=== PATIENT | male | born 1985 | race Caucasian/White ===

== ENCOUNTER 2022-10-09 10:15 | Outpatient (CLI) | payer OTHER ==
--- NOTE | 2022-10-10 09:39 | MRI Report ---
PROCEDURE: CERVICAL SPINE WO INDICATIONS: CERVICAL RADICULOPATHY TECHNIQUE: Noncontrast sagittal T1 spin echo and T2 fast spin echo, sagittal STIR, foraminal oblique sagittal T2 fast spin echo, and axial gradient echo or T2 fast spin echo through the cervical spine. COMPARISON: None. FINDINGS: Image quality: Excellent. Alignment and Curvature: There is normal bony alignment. Bone Marrow: Marrow demonstrates normal overall signal. Spinal Cord: Visualized spinal cord has normal size and signal. No cerebellar tonsillar herniation. Paraspinous Soft Tissues: No paravertebral masses. Prevertebral soft tissues are normal in thicknes s. C2-C3: No canal stenosis or foraminal stenosis. C3-C4: Very minimal central posterior disc protrusion, without touching the cord. No canal stenosis . AP diameter of the canal is 11.4 mm. Foramina are patent. C4-C5: Mild central posterior disc protrusion indenting on the cord. Congenitally short pedicles. AP diameter of the canal is 9.3 mm. Right uncovertebral joint hypertrophy and facet hypertrophy. Left f acet hypertrophy. Moderate to severe right foraminal narrowing with a degree of right foraminal C5 ne rve root impingement. Moderate left foraminal narrowing. C5-C6: Diffuse posterior disc plus osteophyte abutting and indenting on the cord. AP diameter of the canal is 9.5 mm. Somewhat congenitally short pedicles. Bilateral uncovertebral joint hypertrophy and facet hypertrophy. Moderate to severe right foraminal narrowing and severe left foraminal narrowing with bilateral foraminal C6 nerve root impingement. C6-C7: Small central posterior osteophyte. No canal stenosis. AP diameter of the canal is 10.7 mm. L eft facet hypertrophy. Right uncovertebral joint hypertrophy. Moderate to severe right foraminal narr owing and severe left foraminal narrowing with bilateral foraminal C7 nerve root impingement. C7-T1: No canal stenosis. Right facet hypertrophy and focal moderate to severe right foraminal narro wing with right foraminal C8 nerve root impingement. IMPRESSION: 1. Mild canal stenosis at C4-C5 and C5-C6. 2. Significant multilevel foraminal narrowing with multilevel foraminal nerve root impingement. There is bilateral foraminal nerve root impingement at C4-C5, C5-C6, and C6-C7. There is right foraminal n erve root impingement at C7-T1. Reviewed by: Niall Busby MD on 10/10/2022 9:37 AM PDT Approved by: Niall Busby MD on 10/10/2022 9:37 AM PDT Station ID: [id number]
== END 2022-10-09 10:16 | disposition home or self-care (01) ==
LOC: DI 10:15
PROVIDERS: ATTEND Family Medicine
DX: M50.11 Cervical disc disorder with radiculopathy, high cervical region (principal); M47.22 Other spondylosis with radiculopathy, cervical region; M48.02 Spinal stenosis, cervical region

== ENCOUNTER 2022-12-23 09:12 | Outpatient (CLI) | payer OTHER ==
--- NOTE | 2022-12-23 11:19 | CT Report ---
PROCEDURE: LOWER EXTREMITY WO - RT INDICATIONS: RIGHT TALAR NECK BONE SPUR WITH PAIN TECHNIQUE: Noncontrast 3-mm axial sections acquired from the distal tibial shaft to the talar dome, with coronal and sagittal reformats. For radiation dose reduction, the following was used: automated exposure c ontrol, adjustment of mA and/or kV according to patient size. COMPARISON: None. FINDINGS: Image quality: Excellent. Bones: There is an anterior osteophyte from the talus measuring 1.3 x 1.2 cm. There is no encroachme nt or compromise of the joint space. It is located approximately 5 mm below the skin surface. No visualized fractures or dislocations. No suspicious osseous lesions. Soft tissues: Normal appearance of the muscles are identified. No focal fluid collections. Impression: Prominent anterior talar osteophyte as above. Reviewed by: Yas Biswas MD on 12/23/2022 11:17 AM PDT Approved by: Yas Biswas MD on 12/23/2022 11:17 AM PDT Station ID: [id number]
== END 2022-12-23 09:13 | disposition home or self-care (01) ==
LOC: DI 09:12
PROVIDERS: ATTEND Podiatrist
DX: M25.771 Osteophyte, right ankle (principal)

== ENCOUNTER 2023-05-04 15:11 | Outpatient (CLI) | payer OTHER ==
--- NOTE | 2023-05-04 16:13 | Sleep Patient Instructions ---
Sleep Center Visit Summary - Patient Visit Information Reason for Visit: Initial consult for evaluation of sleep disordered breathing and other sleep issues. - Patient Instructions Instructions Attached: Sleep Study Home Monitor, Sleep Study Additional Instructions: You will be completing a sleep study, either an in-lab polysomnography (PSG) or home sleep study (HST). You will follow-up in the sleep care office after the sleep study is completed to hear the results and talk about therapy, if needed. You will be called by our office staff to schedule this appointment, but you may contact us with any questions. - Clinic Information Contact: [facility] [address] [place] [id number] [email or web address] T: [phone]
--- NOTE | 2023-05-04 16:22 | SLEEP CARE CONSULTATION ---
Information from patient questionnaire entered by Lisa Reyes. I have reviewed and concur with the information entered by Lisa Reyes. This document represents the service I personally performed and the decisions made by me, Delia Thompson ARNP. History of Present Illness Service Date and Time: 05/04/2023 1511 Reason for Visit: New patient, Previously diagnosed sleep apnea Chief Complaint: reports: Unrefreshed sleep, Snoring, Excessive daytime sleepiness, Observed pauses in breathing, Fatigue, Other (UPDATE SUPPLIES) Date of Onset: 14YRS Usual bedtime: 10-11PM Time it takes to fall asleep: 10MIN Snores at night: Yes Observed to quit breathing while asleep: Yes Sleeps alone due to snoring: No Number of times waking at night: 4-5 Reasons for waking at night: reports: Gasping for air (heard by his ), Pain, Other (UNKNOWN) Toss, Turn, or Twitch while sleeping: Yes Recalls having dreams: No Usually gets out of bed at: 430AM Feels refreshed in the morning: No Morning headache: Yes (3-4 times a week) Sleepy or fatigued during the day: Yes Ever fallen asleep while driving: Yes (drowsy driving) Takes day naps: Yes (1-2 weekly for 10-15 minutes) Dreams during day naps: No Prior sleep studies: Yes Additional HPI information: I had the pleasure of seeing GLENN SINGH today regarding the possibility of him having a sleep disorder. His current complaints are excessive daytime sleepiness, fatigue, observed pauses in breathing, snoring and unrefreshed sleep. Patient states he has been previously diagnosed with obstructive sleep apnea back in 2013 or . He was also placed on a CPAP, AirSense 10, that he still has at home. He says he tried every style of mask and they adjusted pressures multiple times but he was unable to find a mask that was comfortable where he could leave it on for more than a couple hours at night. He also tried multiple oral devices, 3-4 types, but because of his extreme bruxism he damaged or broke them. He now has TMJ issues for which he uses a nightly mouthguard. He says he has not used any treatment for his sleep apnea for years now. He knows he snores loudly and has pauses in breathing. He states he normally falls asleep quickly but will wake up several times during the night. When he gets up in the morning he does not feel like he slept much at all. His gets nervous at night when she hears him gasping in his sleep and pausing in breathing. His father has sleep apnea and is on a PAP machine. - Parasomnia Symptoms Ever been unable to move upon waking from sleep: No Walks in sleep: No Talks in sleep: Yes Ever acted out dreams in sleep: Yes (has sat up and talked to ) Ever felt weak in the knees when startled or emotional: No Bothered by creepy, crawly, restless sensations in legs: No Problems with memory or concentration: Yes (both) Subjective Initial [place] Sleepiness Scale score: 16 (04/06/23) Past Medical History Past Medical History: reports: Anxiety, Depression, Mood disorder, Other (BACK NECK AND KNEE PAIN, tmj) Social History The patient's occupation is a [employer]. Patient is Single and lives in . Have you smoked in the past 12 months: No Alcohol use: Yes Alcohol amount and frequency: 1-2 BEERS PER WEEK Caffeine use: Yes Caffeine amount and frequency: 1 PER DAY Family History Family history of sleep disordered breathing: Yes Family Hx Sleep Apnea: Mother: Snoring, Sleep apnea - Untreated, Father: Snoring, Sleep apnea - Treated, Sibling: Snoring, Sleep apnea - Untreated Allergies and Home Medications Known drug allergies: Yes (erythromycin; beta-blockers) Drug allergies reviewed: Yes Home medication list reviewed: Yes (as listed) Allergy and home medication list: Allergies erythromycin base Allergy (Intermediate, Verified 05/04/23 16:20) Nausea BETA BLOCKERS Allergy (Intermediate, Uncoded 05/04/23 16:20) Itching Home Medications Fluoxetine HCl [Prozac] See Rx Instructions .ROUTE .COMPLEX 05/04/23 [History] Fluticasone [Flonase] See Rx Instructions .ROUTE .COMPLEX 05/04/23 [History] Loratadine [Claritin] See Rx Instructions .ROUTE .COMPLEX 05/04/23 [History] Olopatadine HCl See Rx Instructions .ROUTE .COMPLEX 05/04/23 [History] Phentermine/Topiramate [Qsymia 7.5 mg-46 mg Capsule] See Rx Instructions .ROUTE .COMPLEX 05/04/23 [History] Review of Systems Weight gain over past 5 years: 20 Neurological: reports: headaches Psychiatric: reports: anxiety, depression, mood disorder Ear/Nose/Throat: reports: tonsillectomy, wisdom teeth removed Endocrine: reports: sluggishness Musculoskeletal: reports: joint pain, neck pain, back pain, joint swelling, muscle pain or cramping, mobility problems Physical Exam Vital signs obtained and entered by: LISA Verde MA Blood Pressure: 124/84 (RIGHT ARM) Cuff size: regular Heart Rate: 71 O2 Saturation: 99 Height: 6 ft 1 in Weight: 241 lb 12.8 oz Body Mass Index: 31.8 BMI Classification: Obese Neck circumference: 16.25 Mouth and throat: narrow oropharynx Soft palate: long Hard palate: normal Uvula: normal Uvula visualization: 25% Mallampati Class III Tongue: enlarged in size with teeth coleman on lateral edges Tonsils: absent bilaterally Neck: normal w/o lymphadenopathy or thyromegaly Heart: regular rate and rhythm Lungs: clear bilaterally Impression and Plan 1. Suspected Obstructive Sleep Apnea-Hypopnea Syndrome, as previously diagnosed and as suggested by a history of loud and irregular snoring, observed cessation of breath while asleep, gasping or choking in sleep, morning headache, frequent awakening during the night, unrefreshed sleep, cognitive impairment, and excessive daytime sleepiness. Narrow oropharynx and obesity are common predisposing factors for obstructive sleep apnea-hypopnea syndrome. I recommend proceeding to polysomnography to confirm the diagnosis and to assess severity. If the patient has significant sleep disordered breathing, a manual CPAP titration study will also be performed to find the optimal treatment pressure. I informed the patient of what the sleep studies involve and after some discussion, obtained agreement to proceed. The pathophysiology of obstructive sleep apnea-hypopnea syndrome was discussed with the patient and health risks of cardiovascular and cerebrovascular disease if not treated. Risks of drowsy driving discussed in detail and patient advised to avoid long distance driving and to test puller at the first sign of drowsiness. Patient agreed to plan. * Schedule polysomnography +- manual CPAP titration study and return in 1-2 weeks after the study to discuss result and initiate therapy. * Avoid long distance driving or driving when feeling sleepy. * Avoid alcohol, sedative and muscle relaxant around bedtime. * Attempt to lose weight. * Review instructions provided by trained office staff on how to prepare for the sleep study. * Return for follow-up after sleep study completed. Counseling Topics: Weight loss health impact Follow up with Sleep Care in: other (after sleep study) Plan: PSG/HST Visit Type: In Office Time Spent with Patient (minutes): 35 Provider Statement: I spent 100% of the Face to Face Visit with the patient with greater than 50% spent counseling the patient and coordination of care.
[2023-05-04 16:27] VITALS: BP 124/84; O2SAT 99
== END 2023-05-04 15:12 | disposition home or self-care (01) ==
LOC: SC 15:11
PROVIDERS: ATTEND Nurse Practitioner Family
DX: G47.33 Obstructive sleep apnea (adult) (pediatric) (principal); E66.9 Obesity, unspecified; Z68.31 Body mass index [BMI] 31.0-31.9, adult
CPT/HCPCS: 99203; 99212

== ENCOUNTER 2023-06-13 20:27 | Outpatient (CLI) | payer OTHER | END 2023-06-13 20:28 | disposition home or self-care (01) | LOC: SC 20:27 | PROVIDERS: ATTEND Nurse Practitioner Family | DX: G47.33 Obstructive sleep apnea (adult) (pediatric) (principal) | CPT/HCPCS: 95810 ==

== ENCOUNTER 2023-07-11 15:27 | Outpatient (CLI) | payer OTHER ==
--- NOTE | 2023-07-11 15:08 | Sleep Patient Instructions ---
Sleep Center Visit Summary - Patient Visit Information Reason for Visit: Sleep study follow-up - Patient Instructions Additional Instructions: You will be completing a titration sleep study in our sleep lab where you will be sleeping with the CPAP machine on and we will be adjusting your pressures to find your optimal pressure settings. Once we have your results back, we will call you and schedule a follow up to go over the results, you may contact us with any questions or issues as needed. - Clinic Information Contact: [facility] [address] [place] [id number] [email or web address] T: [phone]
--- NOTE | 2023-07-11 15:11 | SLEEP CARE CONSULTATION ---
Information from patient questionnaire entered by Maggie Reyes. I have reviewed and concur with the information entered by Maggie Reyes. This document represents the service I personally performed and the decisions made by , Delia Thompson ARNP. History of Present Illness Service Date and Time: 07/11/2023 1500 Initial [place] Sleepiness Scale score: 16 (04/06/23) Current [place] Sleepiness Scale score: 14 (07/11/23) Additional HPI information: GLENN SINGH returns for follow up and results of the recently performed polysomnography. The sleep study showed mild obstructive sleep apnea with an average AHI of 5.7 and gilma oxygen saturation of 87%. He was seen to have bruxism. I explained the pathophysiology behind obstructive sleep apnea. We then spent quite a bit of time discussing different treatment options. For mild obstructive sleep apnea, surgery and oral appliance are alternatives to nasal CPAP therapy but in moderate or severe cases, nasal CPAP is the most effective and reliable treatment. I reviewed the impact of weight changes on sleep apnea and strongly recommended losing weight. After some discussion, the patient opted to go with the nasal CPAP therapy. A manual titration study will be ordered to find optimal pressure with office adjustments. I explained how CPAP machine works and what to expect when using the machine. Patient was cautioned about risks of drowsy driving until sleepiness symptoms resolve. Sleep Study - Results Type of Sleep Study: Polysomnography (COMPLETED 06/13/23) Prior sleep studies: Yes Polysomnography/Home Sleep Study results: IMPRESSION: The quality of the study is good. The patient had normal sleep efficiency. The sleep architecture was relatively normal as well considering the first night effect. Respiratory monitoring showed mild obstructive sleep apnea-hypopnea (AHI = 5.7) associated with oxyhemoglobin desaturation and mild hypoxia (gilma oxygen saturation of 82%). The respiratory events occurred independently of sleep stage and body position (supine AHI = 5.8; non-supine = 5.35). Snore was loud in intensity. There was no significant periodic leg movement of sleep. Cardiac rhythm was normal sinus rhythm without significant arrhythmia. No abnormal behavior (parasomnia) observed during the night. Allergies and Home Medications Known drug allergies: Yes (as listed) Drug allergies reviewed: Yes Home medication list reviewed: Yes (no changes) Allergy and home medication list: Allergies erythromycin base Allergy (Intermediate, Verified 07/09/23 10:04) Nausea BETA BLOCKERS Allergy (Intermediate, Uncoded 07/09/23 10:04) Itching Review of Systems Review of systems same as previous: Yes (NO CHANGE) Physical Exam Vital signs obtained and entered by: MAGGIE Verde MA Blood Pressure: 138/80 (RIGHT ARM) Cuff size: regular Heart Rate: 74 O2 Saturation: 100 Height: 6 ft 1 in Weight: 233 lb Body Mass Index: 30.7 BMI Classification: Obese Impression and Plan 1. Obstructive Sleep Apnea-Hypopnea Syndrome, mild, with lowest oxygen saturation of 87%. Obviously this is the cause of the patients symptoms of unrefreshed sleep, and excessive daytime sleepiness. Positive pressure therapy could benefit anxiety, depression and mood disorder. As mentioned above, the patient will be started on nasal autoCPAP therapy. A manual titration study will be completed if unable optimal treatment pressure with office adjustments. Compliance guidelines also reviewed. A copy of compliance guidelines will be given for reference at check out. 2. Bruxism. Patient seen to have bruxism throughout the night during the night of his sleep study. He has a history of severe bruxism. He may follow-up with dentist for further evaluation and treatment as needed for his bruxism. 3. Hypoxemia, mild, with a gilma oxygen saturation of 87% and 1 minutes spent under 90%. The baseline oxygen saturation was normal with an average oxygen saturation of 95%. 4. Obesity, unspecified. Currently patients BMI is 30.7. Obesity increases the risk of apnea, CPAP pressure requirements and overall health risks especially cardiovascular and diabetes. Thus patient is advised to lose weight. * Titration study. * Attempt to lose weight. * Avoid alcohol consumption near bedtime. * Avoid supine sleep until using CPAP. * The patient is again cautioned about driving until sleepiness completely resolves. * Return to office after titration study to review results and initiate therapy0. Counseling Topics: Weight loss health impact Plan: Titration study and followup Visit Type: In Office Time Spent with Patient (minutes): 20 Provider Statement: I spent 100% of the Face to Face Visit with the patient with greater than 50% spent counseling the patient and coordination of care.
[2023-07-11 15:17] VITALS: BP 138/80; O2SAT 100
== END 2023-07-11 15:28 | disposition home or self-care (01) ==
LOC: SC 15:27
PROVIDERS: ATTEND Nurse Practitioner Family
DX: G47.33 Obstructive sleep apnea (adult) (pediatric) (principal); G47.63 Sleep related bruxism; R09.02 Hypoxemia; E66.9 Obesity, unspecified; Z68.30 Body mass index [BMI] 30.0-30.9, adult
CPT/HCPCS: 99212; 99213

== ENCOUNTER 2023-08-13 20:36 | Outpatient (CLI) | payer OTHER | END 2023-08-13 20:37 | disposition home or self-care (01) | LOC: SC 20:36 | PROVIDERS: ATTEND Nurse Practitioner Family | DX: G47.33 Obstructive sleep apnea (adult) (pediatric) (principal); G47.61 Periodic limb movement disorder; F32.A Depression, unspecified | CPT/HCPCS: 95811 ==

== ENCOUNTER 2023-08-16 15:52 | Outpatient (CLI) | payer OTHER ==
--- NOTE | 2023-08-16 15:50 | SLEEP CARE CONSULTATION ---
Information from patient questionnaire entered by Lisa Reyes. I have reviewed and concur with the information entered by Lisa Reyes. This document represents the service I personally performed and the decisions made by , Delia Thompson ARNP. History of Present Illness Service Date and Time: 08/16/2023 1540 Initial [place] Sleepiness Scale score: 16 (04/06/23) Current [place] Sleepiness Scale score: 18 (08/16/23) Additional HPI information: GLENN SINGH returns for follow up of a manual CPAP titration study performed on 08/13/2023. Previous study done on 06/13/2023 showed mild obstructive sleep apnea with AHI 5.7. The patient was informed of the following polysomnography findings: CPAP was initiated at 5 cmH2O and titrated up to CPAP at 6 cmH2O. CPAP at 6 cmH2O appeared to be optimal (AHI of 0.2 per hour on the pressure). There was supine REM sleep on the pressure. Oxygen saturation was normal throughout the night. Lower CPAP settings appeared adequate as well. The patient tolerated positive airway pressure therapy very well. I explained how CPAP machine works and what to expect when using the machine. Using CPAP every night in order to get used to it was emphasized. Patient advised to put CPAP mask on before getting into bed so as not to fall asleep without CPAP. To assist acclimation to CPAP use, it could also be used for a short time during day while reading or watching TV. The patient was instructed to call the CPAP supplier to discuss any mechanical problem that may occur. If the mask given is uncomfortable or is difficult to keep on through the night even with adjustment, contact the CPAP supplier as many will replace with another mask style if notified before 30 days. If snoring or perceives is not getting enough air or too much air from the machine, notify this office. Patient counseled not drink alcohol less than 4 hours before bedtime as it can increase snoring and apnea. Patient was cautioned about risks of drowsy driving until sleepiness symptoms resolve. Patient denies drowsy driving. Sleep Study - Results Type of Sleep Study: Polysomnography (COMPLETED 06/13/23 TITRATION 08/13/23) Prior sleep studies: Yes Polysomnography/Home Sleep Study results: IMPRESSION: The quality of the study is good. CPAP was initiated at 5 cmH2O and titrated up to CPAP at 6 cmH2O. CPAP at 6 cmH2O appeared to be optimal (AHI of 0.2 per hour on the pressure). There was supine REM sleep on the pressure. Oxygen saturation was normal throughout the night. Lower CPAP settings appeared adequate as well. The patient tolerated positive airway pressure therapy very well. The patients sleep efficiency was normal. The sleep architecture was also relatively normal considering the first- night effect. There was mild periodic leg movement of sleep not associated with sleep fragmentation. Cardiac rhythm was normal sinus rhythm without significant arrhythmia. No abnormal behavior (parasomnia) observed during the night. Allergies and Home Medications Known drug allergies: Yes (as listed) Drug allergies reviewed: Yes Home medication list reviewed: Yes (no changes) Allergy and home medication list: Allergies erythromycin base Allergy (Intermediate, Verified 08/16/23 14:41) Nausea BETA BLOCKERS Allergy (Intermediate, Uncoded 08/16/23 14:41) Itching Review of Systems Review of systems same as previous: Yes (NO CHANGE) Physical Exam Vital signs obtained and entered by: LISA REYES Blood Pressure: 133/94 (PER PT) Height: 6 ft 1 in (PER PT) Weight: 235 lb (PER PT) Body Mass Index: 30.9 BMI Classification: Obese Impression and Plan 1. Obstructive Sleep Apnea-Hypopnea Syndrome, mild. He returns to office after titration study to review results and initiate CPAP therapy. Positive pressure therapy could benefit anxiety, depression and mood disorder. The patient will be started on nasal autoCPAP therapy with pressure set at 5-8 cmH2O. Compliance guidelines also reviewed. A copy of compliance guidelines will be given for reference at check out. He will call us once he has his new CPAP to set up a follow-up for compliance a month after he has been using his CPAP. 2. Periodic limb movement, mild, that did not fragment patients sleep. Periodic limb movement of sleep (PLMS) is characterized by episodes of repetitive limb movements that occur during sleep and usually involve the lower limbs. The etiology is unknown. Patient was advised that no treatment is needed at this time. If symptoms increase, then further evaluation is indicated. 3. Obesity, unspecified. Currently patients BMI is 30.9. Obesity increases the risk of apnea, CPAP pressure requirements and overall health risks especially cardiovascular and diabetes. Thus patient is advised to lose weight. * Nasal auto CPAP therapy, pressure at 5-8 cm H2O. * Attempt to lose weight. * Avoid alcohol consumption near bedtime. * Avoid supine sleep until using CPAP. * The patient is again cautioned about driving until sleepiness completely resolves. * Return one month after CPAP obtained. I will assess response to therapy and compliance at that time. Counseling Topics: Weight loss health impact Prescriptions: Auto CPAP Plan: start CPAP and compliance follow up Visit Type: In Office Patient Location: Office Time Spent with Patient (minutes): 21 Provider Statement: I spent 100% of the Face to Face Visit with the patient with greater than 50% spent counseling the patient and coordination of care.
[2023-08-16 16:01] VITALS: BP 133/94
== END 2023-08-16 15:53 | disposition home or self-care (01) ==
LOC: SC 15:52
PROVIDERS: ATTEND Nurse Practitioner Family
DX: G47.33 Obstructive sleep apnea (adult) (pediatric) (principal); G47.61 Periodic limb movement disorder; E66.9 Obesity, unspecified; Z68.30 Body mass index [BMI] 30.0-30.9, adult

== ENCOUNTER 2023-10-30 15:38 | Outpatient (CLI) | payer OTHER ==
--- NOTE | 2023-10-30 16:19 | Sleep Patient Instructions ---
Sleep Center Visit Summary - Patient Visit Information Reason for Visit: First compliance follow-up for sleep apnea - Patient Instructions Additional Instructions: You were here for follow up of CPAP therapy. You will be continued on CPAP therapy with pressure at 6-9 cmH2O. Please let us know if the pressure change is uncomfortable and we can make further adjustments of the pressure. You should follow up with sleep care in 1-2 months. You may contact us sooner for any questions or concerns. - Clinic Information Contact: [facility] [address] [place] [address] [email or web address] T: [phone]
--- NOTE | 2023-10-30 16:24 | SLEEP CARE CONSULTATION ---
Information from patient questionnaire entered by Roxana Galvan. I have reviewed and concur with the information entered by Roxana Galvan. This document represents the service I personally performed and the decisions made by , Delia Thompson ARNP. History of Present Illness Service Date and Time: 10/30/2023 1538 Previous diagnosis: Mild, Obstructive Sleep Apnea-Hypopnea Syndrome AHI: 5.7 Reason for follow up: first compliance (Set up 09/13) Equipment type: CPAP (Airsense 11, s/u 09/13/23) Equipment obtained from: Other ([place]) Mask style: Nasal pillows Mask brand: Respironics (Dreamwear) Backup mask available: Yes (other mask) Last cushion change: 2 weeks Prior sleep studies: Yes Year and Where: 2023 [facility] Type of Sleep Study: Polysomnography (COMPLETED 06/13/23 TITRATION 08/13/23) HPI additional information: GLENN SINGH was diagnosed to have mild, AHI 5.7, obstructive sleep apnea- hypopnea syndrome and returned today for CPAP therapy first compliance follow- up. Sleep Study - Results Type of Sleep Study: Polysomnography (COMPLETED 06/13/23 TITRATION 08/13/23) Prior sleep studies: Yes Year and Where: 2023 [facility] CPAP Compliance Data - Data Reviewed with Patient Average duration of nightly device use: 4 h 3 min Compliance rate %: 47 (29/32 days used; 09/17/23-10/18/23 ) Current pressure setting (cmH2O): 4-20 (median 5.2, avg 7.5, max 8.8) Average residual AHI: 1.8 Central apnea: 0.8 Obstructive apnea: 0.7 Hypopnea: 0.2 Average large leak: 0.6 L/min Subjective Missed days of use due to: reports: mask issues, travel, other (waking up with mask off; just not sleeping more) Patient concerns: reports: aerophagia, mask discomfort, condensation in mask/hose. denies: air blowing in eyes, mask leak noise, nasal congestion, dry mouth, nose, throat, epistaxis Observed to snore while using device: No Current pressure setting perceived as: too low On therapy, patient: reports: sleeping better, awakening more refreshed, more rested overall, other (feels improved on the weekends when gets more sleep). denies: drowsiness while driving Initial [place] Sleepiness Scale score: 16 (04/06/23) Current Donora Sleepiness Scale score: 14 (10/30/23) Allergies and Home Medications Known drug allergies: Yes (as listed) Drug allergies reviewed: Yes Home medication list reviewed: Yes (no changes) Allergy and home medication list: Allergies erythromycin base Allergy (Intermediate Nausea BETA BLOCKERS Allergy (Intermediate Itching beta blockers Adverse Reaction Unknown Review of Systems Review of systems same as previous: Yes (no changes) Physical Exam Vital signs obtained and entered by: Delia Carlos NP Blood Pressure: 118/74 Cuff size: long (left arm) Heart Rate: 67 O2 Saturation: 100 Height: 6 ft 2 in Weight: 231 lb 9.6 oz Body Mass Index: 29.7 BMI Classification: Overweight Impression and Plan 1. Obstructive Sleep Apnea-Hypopnea Syndrome, mild, with fair treatment compliance and good apnea control. On CPAP therapy, the patient has better sleep quality and is more rested overall. He has significant improvement of his sleep apnea. He is working on trying to be comfortable with CPAP therapy. He notices a difference when he is able to wear the mask longer on the weekends but due to his work schedule is not getting enough sleep during the week. He has had some condensation and we discussed ways to reduce it with using the heated hose, putting the machine lower than his head and a cover over the hose for insulation. He has had a few issues with getting sores in his nose from the nasal pillows. We discussed changing to either a nasal cushion that goes under the nose or cups the nose. He would like to look into this and will be reaching out to his DME supplier, [place]. His machine did not come preset and he feels like the pressure is too low at beginning of night. I will increase his ramp starting pressure to 5 cmH2O. The patients pressure will be changed to autoCPAP 6-9 cmH20 to reflect pressure being used and titration study results. Patient advised to contact me if pressure change is uncomfortable so that it can be adjusted. Goals for apnea control discussed. Patient's apnea severity and rationale for treatment to reduce apnea, improve sleep quality and reduce cardiovascular and cerebrovascular events was reviewed. I also reviewed the benefit of consistent device use of CPAP for depression/anxiety, mood disorder. 2. Overweight, unspecified. Currently patients BMI is 29.7. Obesity increases the risk of apnea, CPAP pressure requirements and overall health risks especially cardiovascular and diabetes. Thus patient is advised to lose weight. * Change auto CPAP pressure to 6-9 cmH2O * Notify me if snoring with mask or feeling that the pressure is too much or too little * Attempt to lose weight * Call this office if any problems using CPAP * Return for follow up in 1-2 months, or sooner if concerns arise Adjust device pressure to (cmH2O): 6-9 Counseling Topics: Spare mask, Weight loss health impact Follow up with Sleep Care in: 1-2 months Visit Type: In Office Time Spent with Patient (minutes): 25 Provider Statement: I spent 100% of the Face to Face Visit with the patient with greater than 50% spent counseling the patient and coordination of care.
[2023-10-30 16:26] VITALS: BP 118/74; O2SAT 100
== END 2023-10-30 15:39 ==
LOC: SC 15:38
PROVIDERS: ATTEND Nurse Practitioner Family
DX: G47.33 Obstructive sleep apnea (adult) (pediatric) (principal); E66.3 Overweight; Z68.29 Body mass index [BMI] 29.0-29.9, adult
CPT/HCPCS: 99212; 99213